=== PATIENT | male | born 1945 | race African-American/Black ===

== ENCOUNTER 2021-05-19 09:54 | Emergency (ER) | payer MEDICARE, OTHER ==
[~2021-05-19] VITALS: Ht 177.8 cm; Wt 97.0 kg
[2021-05-19 09:59] VITALS: BP 147/81
[2021-05-19] MEDS ORDERED: ACETAMINOPHEN WITH CODEINE 300/30MG TABLET PO ONE (10:30)
[2021-05-19] MEDS ORDERED: T3 PO (10:46)
[2021-05-19] MEDS ORDERED: MELA1TAB28 MT (10:46)
== END 2021-05-19 11:04 | disposition home or self-care (01) ==
LOC: ER 09:54
DX: H92.02 Otalgia, left ear (principal); R68.84 Jaw pain
CPT/HCPCS: 99283